=== PATIENT | male | born 1945 | race Caucasian/White ===

== ENCOUNTER 2020-01-08 09:02 | Outpatient (RCR) | payer MEDICARE, SELFPAY ==
--- NOTE | 2020-01-08 11:29 | PTOPEVAL ---
Thank you for referring this patient to [facility]. Please review, sign, date and return this plan of care [facility]. I agree with and certify that the following plan of care is medically necessary. Referring Physician Date Admitting Provider: Attending Provider: Kunal Beal, Referring Provider: *MIGUEL Outpatient Evaluation Start: 01/08/20 09:09 Freq: Status: Active Protocol: Document 01/08/20 09:09 [facility] (Rec: 01/08/20 10:11 [facility] [id number]) Therapy Assessment Status Assessment Status Assessment Status Evaluation Evaluation Information Problem Diagnosis L Leg pain Onset 01/02/20 Subjective Information patient reports he has been Query Text:As Reported By Patient/ having pain in the L LE for Family about a year or so. he reports his symptoms have been progressing slowly. he reports his is disabled and he uses a gait belt to help pull her up. he reports he feels like he has pulled a mm behind his knee. he reports he is having increased trouble with walking up and down steps. he reports no nerve like symptoms of the L LE. he reports no pain in the back. he reports the greatest pain in the posterio knee and calf. 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 Pain Assessment Timing of Pain Assessment Timing of Pain Assessment Assessment Pain Scale Pain Scale Used Numeric (1 - 10) Self Report Pain Assessment Left Lower Posterior Leg(s) Reported Pain Level 2 Pain Description Dull,Tender on Palpation, Tightness Pain Frequency Chronic,Intermittent Current Pain Intensity 2 Lowest Pain Intensity 0 Greatest Pain Intensity 8 Pain Aggravating Factors Stair Climbing Other Alleviating Interventions biofreeze Pain Score Pain Score 2: Self Report Cervical and Lumbar ROM Lumbar ROM Lumbar Flexion Active Ankle Query Text:Hands to: Lumbar Extension (0-40) 40 Query Text:
== END 2020-01-30 14:16 | disposition home or self-care (01) ==
LOC: CHSPT 09:02
PROVIDERS: Visit Provider Internal Medicine
DX: M79.605 Pain in left leg (principal)
CPT/HCPCS: 97110; 97140; 97161; 97530

== ENCOUNTER 2021-05-11 13:46 | Outpatient (RCR) | payer MEDICARE, SELFPAY ==
--- NOTE | 2021-05-11 15:58 | PTOPEVAL ---
Thank you for referring Gabriel Scott to [facility].? The patient is scheduled to be seen for therapy? ____x/week for ___ weeks. Please review, sign, date and return this plan of care ANAND. I agree with and certify that the following plan of care is medically necessary. Referring Physician Date Admitting Provider: Attending Provider: Kunal Beal, MD Referring Provider: *PT Outpatient Evaluation Start: 05/11/21 13:47 Freq: Status: Active Protocol: Document 05/11/21 14:00 [facility] (Rec: 05/11/21 15:56 [facility] [id number]) Therapy Assessment Status Assessment Status Assessment Status Evaluation Evaluation Information Problem Diagnosis LBP/left buttock, sciatica Onset 05/06/21 Additional Evaluation Detail Oswestry = 48% decreased functional mobility Subjective Information Gabriel Scott is a 75 year old Query Text:As Reported By Patient/ male who reports LBP and Family radiating pain into L LE down to ankle. He is active and rides his bike daily. He reports that pain started a few months ago and he takes tylenol PRN. Standing feels better than sitting, but the first couple of steps after sitting are painful. 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 A homecare company comes during the day during the week to offer respite care . Prior Level of Function Comments Additional Prior Level of Function yard work, gardening, house Comments work, bending down; 's primary caregiver Pain Assessment Timing of Pain Assessment Timing of Pain Assessment Assessment Pain Scale Pain Scale Used Numeric (1 - 10) Self Report Pain Assessment Left Buttock(s) Reported Pain Level 5 Lowest Pain Intensity 2 Greatest Pain Intensity 9 Pain Score Pain Score 5: Self Report Interventions Used Interventions Used By Clinicians Activity or ADL's,Education, Exercise Cervical and Lumbar ROM Lumbar ROM Lumbar Flexion Active Ankle Query Text:Hands to: Lumbar Extension (0-40) 30 Query Text:Active in Degrees Lumbar Lateral Flexion Right (0-40) 40 Query Text:Active in Degrees Lumbar Lateral Flexion Left (0
== END 2021-06-14 11:31 | disposition home or self-care (01) ==
LOC: CHSPT 13:46
PROVIDERS: Visit Provider Internal Medicine
DX: M54.16 Radiculopathy, lumbar region (principal)
CPT/HCPCS: 97014; 97110; 97140; 97161; 97530; G0283

== ENCOUNTER 2021-12-10 09:43 | Emergency (ER) | payer MEDICARE, SELFPAY ==
[2021-12-10 10:00] VITALS: BP 124/77; PULSE 56; RESP 20; TEMP 36.1; O2SAT 97
--- NOTE | 2021-12-10 10:02 | ED.EAR ---
HPI - Ear Problem General Chief complaint: Ear Stated complaint: Cant hear/ ear may need flushed Time Seen by Provider: 12/10/21 10:00 Source: patient Mode of arrival: ambulatory Limitations: no limitations History of Present Illness HPI Narrative: 76-year-old man who has previously well comes to the emergency department complaining of decreased hearing and mild discomfort in his left ear. Patient states he it happened yesterday while he was trying to clean out his ear. Denies any recent cough or cold symptoms, dizziness, difficulty swallowing, or prior surgeries. MD Complaint: decreased hearing Location: left ear Duration: constant Severity: moderate Relieving factors: nothing Exacerbating factors: nothing Discharge from ear: Reports no Associated symptoms ear: decreased hearing Treatment prior to arrival: eardrops and attempt at ear wax removal Related Data Home Medications Medication Instructions Recorded Confirmed atorvastatin 20 mg PO DAILY 12/10/21 12/10/21 Allergies Allergy/AdvReac Type Severity Reaction Status Date / Time No Known Allergies Allergy Verified 12/10/21 11:00 Review of Systems Review of Systems: All systems reviewed & are unremarkable except as noted in HPI and below Constitutional: Constitutional: Denies chills and Denies fever(s) ENT: Denies nasal congestion and Denies sore throat Respiratory: Respiratory: Denies cough and Denies dyspnea Neurologic: Denies vertigo and Denies dizziness Hematologic/Lymphatic: Hematologic/Lymphatic: Denies easy bleeding and Denies easy bruising PMFSH Past Medical History Medical History Dyslipidemia Social History Social History (Updated 12/10/21 @ 10:57 by Jovan Lang MD) Smoking status: Never smoker Substance use: never Living arrangements: with family Exam Const: General: no acute distress and alert Orientation/consciousness: patient oriented x3 HENMT: Ears: external ears normal and Abnormal EAC present cerumen impaction on the left; no EA tenderness Face and sinus: normal facial exam Mouth: Yes moist mucous membranes Throat: posterior oropharynx normal Eyes: Conjunctivae: conjunctivae normal Pupils: Equal, round and reactive pupils present EOM: EOMs intact bilaterally Resp: Effort & Inspection: normal respiratory effort and not labored Auscultation: clear to auscultation bilaterally, no rales, no rhonchi and no wheezes Cardio: Rate: regular rate Rhythm: regular rhythm Heart sounds: no murmurs Neuro: General: patient oriented x3, moves all extremities, no focal motor deficits and CN's II-XI intact bilaterally Speech: normal speech Gait exam (Neuro): Normal gait present Extrem: General: normal to inspection and no clubbing, cyanosis or edema Psych: Appearance: grossly normal and well kempt Mental Status: mental status grossly normal Affect: normal affect Attitude: cooperative Course Course Emergency Course: 1055: After irrigation there is erythema small amount of blood in inferior portion of the proximal canal. TM is intact. Small amount of retained cerumen on the roof of the EAC. Discharge Plan Discharge Clinical Impression: Cerumen impaction Qualifiers: Laterality: left Qualified Code(s): H61.22 - Impacted cerumen, left ear Patient Disposition: Home, Self-Care Condition: Stable Additional Instructions: Keep water out of your ear. Do not use Q-tips to clear ear wax. Prescriptions: New ciprofloxacin-dexamethasone 0.3-0.1 % drops,suspension 4 drp LEFT EAR Q12H 4 Days Qty: 7.5 RF: 0 No Action atorvastatin 20 mg tablet 20 mg PO DAILY RF: 0 Follow-up/Referrals: Emigdio,MD Kunal [Primary Care Provider] - Time of Disposition: 11:03
--- NOTE | 2021-12-10 11:02 | PC.NURSE ---
large amount of loose ear wax and large plug of wax removed with irrigation
[2021-12-10 11:03] VITALS: BP 124/77; PULSE 57; RESP 20; TEMP 36.1; O2SAT 97
== END 2021-12-10 11:10 | disposition home or self-care (01) ==
PROVIDERS: Emergency Provider Emergency Medicine; PCP Internal Medicine
DX: H61.22 Impacted cerumen, left ear (principal); E78.5 Hyperlipidemia, unspecified
CPT/HCPCS: 99283

== ENCOUNTER 2024-09-25 14:04 | Emergency (ER) | payer MEDICARE, SELFPAY ==
[2024-09-25 14:04] VITALS: BP 147/74; PULSE 87; RESP 15; TEMP 36.4; O2SAT 97
--- NOTE | 2024-09-25 14:08 | ED_ITS ---
HPI - Extremity Injury (Upper) General Chief Complaint: Skin/Abscess/Foreign Body Stated Complaint: arm injury Time Seen by Provider: 09/25/24 14:07 Source: patient Mode of arrival: ambulatory Limitations: no limitations History of Present Illness HPI narrative: 79-year-old male slid down an aluminium ladder 3 days ago and sustained abrasion over the left forearm with skin loss measuring 5 cm into 2 cm. his forearm wound has not healed which prompted him to come to the ED. no other injuries noted. No fever or chills. Patient has not had a tetanus shot in the past 12 years. complaint: injury to: left and forearm Onset (ago): day(s) ( Three days) Handedness: right Relieving factors: none Exacerbating factors: none Context: fall Associated symptoms: denies other symptoms Related Data Allergies Allergy/AdvReac Type Severity Reaction Status Date / Time No Known Allergies Allergy Verified 12/10/21 11:00 Review of Systems Review of Systems: All systems reviewed & are unremarkable except as noted in HPI and below PMFSH Past Medical History Medical History Dyslipidemia Social History Social History Smoking status: Never smoker Substance use: never Living arrangements: with family Exam Narrative: vitals are stable Const: General: no acute distress Nutritional Appearance: well nourished Orientation/consciousness: patient oriented x3 Limitations: no limitations HENMT: Head: normal to inspection Ears: external ears normal Face/Nose/Sinus: Normal external nose present Face and sinus: normal facial exam Mouth: Yes Normal oral and palatal mucosa present Throat: posterior oropharynx normal Eyes: Conjunctivae: conjunctivae normal Pupils: Equal, round and reactive pupils present EOM: EOMs intact bilaterally Direct Ophthalmoscopy: no photophobia Neck: Neck: normal visual inspection, no lymphadenopathy and no meningeal signs Chest: Chest palpation & inspection: normal inspection of the chest Resp: Effort & Inspection: normal respiratory effort Auscultation: clear to auscultation bilaterally Cardio: Rate: regular rate Rhythm: regular rhythm GI: GI Palp: Yes Soft to palpation Auscultation: normal bowel sounds Other: no tenderness/ rigidity /rebound. : General: Yes no CVA tenderness Back/Spine/Pelvis: Back: no CVA tenderness Skin: General skin exam: normal color Other: Traumatic ulcer over left dorsal forearm measuring 3 cm in to 2 cm With abrasion Neuro: General: patient oriented x3, moves all extremities, no meningeal signs, no focal motor deficits and CN's II-XI intact bilaterally Cranial nerves: Yes Nystagmus not present Speech: normal speech Gait exam (Neuro): Normal gait present Extrem: General: normal to inspection and no clubbing, cyanosis or edema Psych: Mental Status: mental status grossly normal Affect: normal affect Attitude: cooperative Course Course Emergency Course: traumatic ulcer the left forearm-- wound looks healthy without any granulation tissue. Vital Signs Vital signs: Vital Signs Temperature 36.4 C L 09/25/24 14:04 Pulse Rate 87 09/25/24 14:04 Respiratory Rate 15 09/25/24 14:04 Blood Pressure 147/74 H 09/25/24 14:04 Pulse Oximetry 97 09/25/24 14:04 Oxygen Delivery Room Air 09/25/24 14:04 Temperature 36.4 C L 09/25/24 14:04 Pulse Rate 87 09/25/24 14:04 Respiratory Rate 15 09/25/24 14:04 Blood Pressure 147/74 H 09/25/24 14:04 Pulse Oximetry 97 09/25/24 14:04 Oxygen Delivery Room Air 09/25/24 14:04 MDM - Extremity Injury (Upper) MDM Narrative Medical decision making narrative: Traumatic ulcer left forearm Differential Diagnosis Differential diagnosis: Likely other ( cellulitis) Medical Records Attestation: I reviewed the patient's medical records. Lab Data Attestation: I reviewed the patient's lab results. Discharge Plan Discharge Clinical Impression: Skin ulcer of forearm Qualifiers: Non-pressure ulcer stage: limited to breakdown of skin Qualified Code(s): L98.491 - Non-pressure chronic ulcer of skin of other sites limited to breakdown of skin Patient Disposition: Home, Self-Care Condition: Stable Instructions: Antibiotic Form, Acute Wounds (DC) Additional Instructions: monitor for infection Patient Language: [place] Prescriptions: New amoxicillin 500 mg capsule 500 mg PO Q8H Qty: 20 0RF Follow-up/Referrals: UNKNOWN,DOCTOR [Primary Care Provider] - Time of Disposition: 15:06
[2024-09-25] MEDS: TETANUS,DIPHTHERIA,AC PERTUSSIS ADULT 0.5 ML (ADACEL) IM (14:28)
[2024-09-25 15:41] VITALS: BP 139/73; PULSE 79; RESP 18; TEMP 36.7; O2SAT 97
--- NOTE | 2024-09-25 15:52 | PC.NURSE ---
pt resting on stretcher. no complaints.
== END 2024-09-25 15:41 | disposition home or self-care (01) ==
PROVIDERS: Emergency Provider Internal Medicine Critical Care Medicine
DX: L98.491 Non-pressure chronic ulcer of skin of other sites limited to breakdown of skin (principal); Z23 Encounter for immunization
CPT/HCPCS: 90471; 90715; 99283